=== PATIENT | female | born 1990 | race Caucasian/White ===

== ENCOUNTER 2017-01-26 12:17 | Emergency (ER) | payer SELFPAY ==
[~2017-01-26] VITALS: Ht 157.5 cm; Wt 50.0 kg
[2017-01-26 12:20] VITALS: BP 105/66; PULSE 86; RESP 20; TEMP 97.8; O2SAT 99
[2017-01-26] MEDS ORDERED: OLAN5TAB PO (13:05)
[2017-01-26] MEDS ORDERED: GABA100C4 PO (13:05)
--- NOTE | 2017-01-26 13:10 | PD ---
HPI Chief Complaint: Psychiatric Symptoms Time Seen by Provider: 13:03 Travel History International Travel<30 days: No Contact w/Intl Traveler<30days: No Traveled to known affect area: No History of Present Illness HPI 26-year-old female presents to emergency department accompanied by friends. The patient has moved to [place] approximately one month ago from [place]. Before that she had been living in [place] for approximately 5 years. She is currently dating her friends cousin. They're currently living with the friends that she is with today. She has several children at home. She has been on medications for schizophrenia, mood swings and anxiety. She's been out of her medications now for 2 weeks. According to her friends she is becoming more agitated at home and acting bizarre. She is making suicidal statements. She has also had made statements that she had thoughts of hurting her children. She had called family members in [place] asking them to take care of her children when she dies. Currently the patient denies any homicidal ideation. She does state that she does not want to live anymore. She does not have any active plan. Her friends are concerned due to her erratic behavior in her statements that she is at high risk for harm to herself or others. The patient denies any medical complaints. She has not been sick recently. She denies any overdose. She does smoke marijuana and tobacco. Denies alcohol. She denies . PFSH Past Medical History Narrative Medical Schizophrenia, mood disorder, anxiety, psoriasis Hx Anticoagulant Therapy: No Bipolar Disorder: Yes Anxiety: Yes Depression: Yes Cardiovascular Problems: No Chemotherapy: No Cerebrovascular Accident: No Diabetes: No Diminished Hearing: No Psychiatric: Yes Respiratory: No Schizophrenia: Yes Tetanus Vaccination: > 5 Years Influenza Vaccination: No ?: Not LMP: 01/24/17 : 4 Para: 4 Miscarriage: 0 : 0 Tubal Ligation: Yes Past Surgical History Narrative Surgical Appendectomy, tubal litigation Appendectomy: Yes Hysterectomy: No Social History Alcohol Use: No Tobacco Use: Yes (rare) Substance Use: Yes (marihuanna) Allergies-Medications (Allergen,Severity, Reaction): Coded Allergies: No Known Allergies (Unverified , 01/26/17) Reported Meds & Prescriptions Reported Meds & Active Scripts Active Reported Gabapentin 100 Mg Cap 100 Mg PO TID Olanzapine 5 Mg Tab 5 Mg PO BID Review of Systems Except as stated in HPI: all other systems reviewed are Neg Psychiatric: Positive: Depression, Suicidal Ideations, Mood Disorder, Substance Abuse, No: Anxiety, Disorder of Thought, Homicidal Ideation Physical Exam Narrative GENERAL: Well-nourished, well-developed patient. SKIN: Warm and dry. Scaly dermatitis consistent with psoriasis HEAD: Normocephalic and atraumatic. EYES: No scleral icterus. No injection or drainage. ENT: No nasal drainage noted. Mucous membranes pink. Airway patent. NECK: Supple, trachea midline. Moves head freely without obvious discomfort. CARDIOVASCULAR: Regular rate and rhythm without murmurs, gallops, or rubs. RESPIRATORY: Breath sounds equal bilaterally. No accessory muscle use. GASTROINTESTINAL: Abdomen soft, non-tender, nondistended. EXTREMITIES: No cyanosis or edema. BACK: Nontender without obvious deformity. No CVA tenderness. NEURO: Patient is alert and oriented. no sensorimotor deficits. Nonfocal. Normal speech. PSYCH: No delusions. No auditory or visual hallucinations. Data Data Last Documented VS Vital Signs Date Time Temp Pulse Resp B/P Pulse Ox O2 Delivery O2 Flow Rate FiO2 01/26/17 12:57 17 01/26/17 12:20 97.8 86 105/66 99 Room Air Orders Complete Blood Count With Diff (01/26/17 13:01) Comprehensive Metabolic Panel (01/26/17 13:01) Ed Urine Pregnancytest Poc (01/26/17 13:01) Psych Screen (01/26/17 13:01) Drug Screen, Random Urine (01/26/17 13:01) Alcohol (Ethanol) (01/26/17 13:01) Salicylates (Aspirin) (01/26/17 13:01) Tylenol (Acetaminophen) (01/26/17 13:01) Valproic Acid (Depakene) (01/26/17 13:12) Labs Laboratory Tests Test 01/26/17 13:00 White Blood Count 10.4 TH/MM3 Red Blood Count 4.24 MIL/MM3 Hemoglobin 13.1 GM/DL Hematocrit 38.8 % Mean Corpuscular Volume 91.6 FL Mean Corpuscular Hemoglobin 30.9 PG Mean Corpuscular Hemoglobin 33.8 % Concent Red Cell Distribution Width 13.2 % Platelet Count 281 TH/MM3 Mean Platelet Volume 8.9 FL Neutrophils (%) (Auto) 76.0 % Lymphocytes (%) (Auto) 16.2 % Monocytes (%) (Auto) 6.5 % Eosinophils (%) (Auto) 1.0 % Basophils (%) (Auto) 0.3 % Neutrophils # (Auto) 7.9 TH/MM3 Lymphocytes # (Auto) 1.7 TH/MM3 Monocytes # (Auto) 0.7 TH/MM3 Eosinophils # (Auto) 0.1 TH/MM3 Basophils # (Auto) 0.0 TH/MM3 CBC Comment DIFF FINAL Differential Comment Sodium Level 140 MEQ/L Potassium Level 3.7 MEQ/L Chloride Level 108 MEQ/L Carbon Dioxide Level 24.7 MEQ/L Anion Gap 7 MEQ/L Blood Urea Nitrogen 11 MG/DL Creatinine 0.65 MG/DL Estimat Glomerular Filtration 110 ML/MIN Rate Random Glucose 89 MG/DL Calcium Level 9.0 MG/DL Total Bilirubin 0.6 MG/DL Aspartate Amino Transf 13 U/L (AST/SGOT) Alanine Aminotransferase 18 U/L (ALT/SGPT) Alkaline Phosphatase 70 U/L Total Protein 8.0 GM/DL Albumin 4.3 GM/DL Salicylates Level 2.9 MG/DL Urine Opiates Screen NEG Acetaminophen Level LESS THAN 2.0 MCG/ML Urine Barbiturates Screen NEG Valproic Acid (Depakene) Level 4 MCG/ML Urine Amphetamines Screen NEG Urine Benzodiazepines Screen NEG Urine Cocaine Screen NEG Urine Cannabinoids Screen POS Ethyl Alcohol Level LESS THAN 3 MG/DL MDM Medical Decision Making Medical Screen Exam Complete: Yes Emergency Medical Condition: Yes Medical Record Reviewed: Yes Interpretation(s) Laboratory Tests Test 01/26/17 13:00 White Blood Count 10.4 TH/MM3 Red Blood Count 4.24 MIL/MM3 Hemoglobin 13.1 GM/DL Hematocrit 38.8 % Mean Corpuscular Volume 91.6 FL Mean Corpuscular Hemoglobin 30.9 PG Mean Corpuscular Hemoglobin 33.8 % Concent Red Cell Distribution Width 13.2 % Platelet Count 281 TH/MM3 Mean Platelet Volume 8.9 FL Neutrophils (%) (Auto) 76.0 % Lymphocytes (%) (Auto) 16.2 % Monocytes (%) (Auto) 6.5 % Eosinophils (%) (Auto) 1.0 % Basophils (%) (Auto) 0.3 % Neutrophils # (Auto) 7.9 TH/MM3 Lymphocytes # (Auto) 1.7 TH/MM3 Monocytes # (Auto) 0.7 TH/MM3 Eosinophils # (Auto) 0.1 TH/MM3 Basophils # (Auto) 0.0 TH/MM3 CBC Comment DIFF FINAL Differential Comment Sodium Level 140 MEQ/L Potassium Level 3.7 MEQ/L Chloride Level 108 MEQ/L Carbon Dioxide Level 24.7 MEQ/L Anion Gap 7 MEQ/L Blood Urea Nitrogen 11 MG/DL Creatinine 0.65 MG/DL Estimat Glomerular Filtration 110 ML/MIN Rate Random Glucose 89 MG/DL Calcium Level 9.0 MG/DL Total Bilirubin 0.6 MG/DL Aspartate Amino Transf 13 U/L (AST/SGOT) Alanine Aminotransferase 18 U/L (ALT/SGPT) Alkaline Phosphatase 70 U/L Total Protein 8.0 GM/DL Albumin 4.3 GM/DL Salicylates Level 2.9 MG/DL Urine Opiates Screen NEG Acetaminophen Level LESS THAN 2.0 MCG/ML Urine Barbiturates Screen NEG Valproic Acid (Depakene) Level 4 MCG/ML Urine Amphetamines Screen NEG Urine Benzodiazepines Screen NEG Urine Cocaine Screen NEG Urine Cannabinoids Screen POS Ethyl Alcohol Level LESS THAN 3 MG/DL Differential Diagnosis MDM: High Differential diagnoses: Schizophrenia, schizoaffective disorder, bipolar, anxiety, depression, adjustment reaction, mood disorder NOS, ODD, depressive disorder NOS, dementia, dementia with agitation, psychosis NOS, substance induced mood disorder, intermittent explosive disorder, Asperger syndrome, infection,electrolyte abnormality, malingering. Narrative Course Mental health screening discussed with the patient. Psychiatric screen ordered. The patient has been placed under a Ramos act to ensure patient's safety. The patient does not appear reliable. There is concern for self-harm and this is confirmed by the patient's friends that are with her today. The patient is medically cleared. This is schizophrenia, medical clearance exam Diagnosis Primary Impression: Schizophrenia Qualified Code: F20.9 - Schizophrenia, unspecified type Additional Impression: medical clearance exam Condition: Stable Chetan Morgan Jan 26, 2017 13:10
[2017-01-26 13:24] LABS: AUTOMATED NEUTROPHIL # 7.9 TH/MM3 (1.8-7.7); BASOPHIL % 0.3 % (0.0-2.0); EOSINOPHIL # 0.1 TH/MM3 (0-0.4); HEMATOCRIT 38.8 % (35.0-46.0); HEMO FLAGS DIFF FINAL; LYMPH % 16.2 % (9.0-44.0); LYMPHOCYTE # 1.7 TH/MM3 (1.0-4.8); MEAN CELL VOLUME 91.6 FL (80.0-100.0); MEAN CORPUSCULAR HEMOGLOBIN 30.9 PG (27.0-34.0); MEAN CORPUSCULAR HGB CONC 33.8 % (32.0-36.0); MONO % 6.5 % (0.0-8.0); PLATELET COUNT 281 TH/MM3 (150-450); RED BLOOD COUNT 4.24 MIL/MM3 (4.00-5.30); RED CELL DISTRIBUTION WIDTH 13.2 % (11.6-17.2); WHITE BLOOD COUNT 10.4 TH/MM3 (4.0-11.0)
[2017-01-26 13:29] LABS: AMPHETAMINE, URINE NEG (NEG); BARBITURATES, URINE NEG (NEG); COCAINE, URINE NEG (NEG)
[2017-01-26 13:35] LABS: ANION GAP 7 MEQ/L (5-15); AST (GOT) 13 U/L (15-37); BICARBONATE 24.7 MEQ/L (21.0-32.0); BLOOD UREA NITROGEN 11 MG/DL (7-18); CHLORIDE 108 MEQ/L (98-107); GLOMERULAR FILTRATION RATE 110 ML/MIN (>89); POTASSIUM 3.7 MEQ/L (3.5-5.1); SODIUM (NA) 140 MEQ/L (136-145)
[2017-01-26 13:38] LABS: ALKALINE PHOSPHATASE 70 U/L (45-117); ALT (GPT) 18 U/L (10-53); TOTAL BILIRUBIN ADULT 0.6 MG/DL (0.2-1.0)
[2017-01-26 13:44] LABS: ACETAMINOPHEN LESS THAN 2.0 MCG/ML (10.0-30.0)
[2017-01-26 14:30] VITALS: BP 116/81; PULSE 78; RESP 16; TEMP 97.8; O2SAT 99
[2017-01-26 17:11] VITALS: BP 109/57; PULSE 106; RESP 18; TEMP 96.5; O2SAT 99
[2017-01-26 22:00] VITALS: BP 113/56; PULSE 70; RESP 18; O2SAT 98
[2017-01-27 02:38] VITALS: BP 112/56; PULSE 84; RESP 18; O2SAT 98
[2017-01-27 06:20] VITALS: BP 98/60; PULSE 89; RESP 18
[2017-01-27 10:44] VITALS: BP 105/59; PULSE 73; RESP 18; O2SAT 100
--- NOTE | 2017-01-27 11:23 | PD.CONS ---
Provisional Diagnosis Admission Date 01/26/17 [place]. Schizoaffective disorder bipolar type f 25.0 marijuana abuse F 12.10 History of Present Illness Service Psychiatry Consult Requested By EDMD Reason for Consult Richard ramirez Primary Care Physician No Primary Care Physician HPI Patient 26-year-old Malian-speaking female comes here under Ramos act signed by Crystal GU dated 01/26/1713 [place] 5 PM Ramos act certificate reviewed basically stating that patient made suicidal statements that she no longer wants to live. And had called relatives to care for her children. It appears the patient has moved down here from the [place] area further for small children about a month ago is staying with family. It appears she has mental health issues was seeing some type of a psychiatrist in [place] being prescribed Zyprexa and gabapentin. She shows some noncompliance with her medications running out of the medicine. This may lead to increased auditory hallucinations also increase use of marijuana on a self-medicating attempt. She does deny any inpatient psychiatric hospitalizations either here or in [place]. At the present time patient sitting quietly in her room on [facility]. We do have semiconductor dies loader working with us through the computer. Patient acknowledges the above history. She denies suicidality homicidality. She states she is willing to be compliant with her medications. She states that her family has made some type of an appointment with some type of a health pet caretaker the next day or 2. At this time I feel patient does not meet Ramos act criteria. I will lift the Ramos act. I will prescribe her 2 week supply of Zyprexa 5 mg twice a day and gabapentin 100 mg 3 times a day. We'll also arrange for follow-up appointment with [facility] outpatient mental health services. Allow patient to be discharged to her family Review of Systems Constitutional: DENIES: Diaphoretic episodes, Fatigue, Fever, Weight gain, Weight loss, Chills, Dizziness, Change in appetite, Night Sweats Endocrine: DENIES: Abnorml menstrual pattern, Heat/cold intolerance, Polydipsia , Polyuria, Polyphagia Eyes: DENIES: Blurred vision, Diplopia, Eye inflammation, Eye pain, Vision loss , Photosensitivity, Double Vision Respiratory: DENIES: Apneas, Cough, Snoring, Wheezing, Hemoptysis, Sputum production, Shortness of breath Cardiovascular: DENIES: Chest pain, Palpitations, Syncope, Dyspnea on Exertion , PND, Lower Extremity Edema, Orthopnea, Claudication Genitourinary: DENIES: Abnormal vaginal bleeding, Dysmenorrhea, Dyspareunia, Sexual dysfunction, Urinary frequency, Urinary incontinence, Urgency, Hematuria , Dysuria, Nocturia, Vaginal discharge Musculoskeletal: DENIES: Joint pain, Muscle aches, Stiffness, Joint Swelling, Back pain, Neck pain Integumentary: DENIES: Abnormal pigmentation, Pruritus, Rash, Nail changes, Breast masses, Breast skin changes, Nipple discharge Hematologic/lymphatic: DENIES: Bruising, Lymphadenopathy Neurologic: DENIES: Abnormal gait, Headache, Localized weakness, Paresthesias, Seizures, Speech Problems, Tremor, Poor Balance Psychiatric: COMPLAINS OF: Anxiety, Mood changes (vague), Depression (vague), Hallucinations Past Family Social History Coded Allergies: No Known Allergies (Unverified , 01/26/17) Past Medical History Patient medically clearedand Reported Medications Gabapentin 100 Mg Oly604 Mg PO TID #90 CAP Ref 0 01/26/17 Olanzapine 5 Mg Tab5 Mg PO BID #60 TAB Ref 0 01/26/17 Family History Patient living with extended family no history mental illness or abuse noted Social History Patient here with 4 small children has been self-medicating with marijuana since running out of her medication Patient's Strengths (min. 2) Patient verbal irritable access healthcare Physical Exam Patient seen screened in ED exam reviewed and agreed with Vital Signs Vital Signs Date Time Temp Pulse Resp B/P Pulse Ox O2 Delivery O2 Flow Rate FiO2 01/27/17 10:44 73 18 105/59 100 Room Air 01/26/17 17:11 96.5 Mental Status Examination Alert fairly well oriented speaking female calm cooperative with fair eye contact speaking appropriately through semiconductor dies loader through the computer Appearance Somewhat disheveled Speech: Rapid (though speaking in Malian) Orientation: x3 Thought Process: Linear Thought Content: Unremarkable Language Malian Fund of Knowledge Appears somewhat low Hallucination Type: Auditory (mildly threatening) Attention and Concentration: Other (fair) Suicidal Ideation: No (denies) Previous Suicide Attempts: No (denies) Homicidal Ideation: No (denies) Previous Homicide Attempts: No (denies) Insight: Poor Judgment: Poor Affect: Other (slight decrease range and intensity) Mood: Euthymic (to somewhat restricted) Motor Activity: Normal gait Assessment & Plan Problem List: (1) Schizoaffective disorder, bipolar type ICD Code: F25.0 (2) Marijuana abuse ICD Code: F12.10 Assessment & Plan Estimated LOS: days patient does not meet Richard criteria will lift Richard ramirez. We'll give her 2 week supply of her medications, other referral to [facility] ramirez outpatient follow-up. Patient denies suicidality homicidality also size need for sobriety with cessation of her marijuana use Discharge Planning See above Request HC Surrog/Guard Advoc?: No King Nevarez MD Jan 27, 2017 11:22
[2017-01-27] MEDS ORDERED: OLAN5TAB PO (11:25)
[2017-01-27] MEDS ORDERED: GABA100C4 PO (11:25)
== END 2017-01-27 11:36 | disposition home or self-care (01) ==
LOC: NEPD 12:17 → NEPJ 01-27 11:36
DX: F20.9 Schizophrenia, unspecified (principal); F41.9 Anxiety disorder, unspecified; F12.90 Cannabis use, unspecified, uncomplicated; Z91.14 Patient's other noncompliance with medication regimen
CPT/HCPCS: 80053; 80164; 80307; 84703; 85025; 99284

== ENCOUNTER 2017-10-15 13:36 | Emergency (ER) | payer OTHER ==
[~2017-10-15 13:36] MED LIST: GABA100C4 PO; OLAN5TAB PO
[2017-10-15 13:39] VITALS: BP 103/58; PULSE 78; RESP 14; TEMP 98; O2SAT 99
[2017-10-15] MEDS ORDERED: IBUPROFEN 600 MG TAB PO ONE (14:15)
--- NOTE | 2017-10-15 14:17 | PD ---
HPI Chief Complaint: Pain: Acute or Chronic Time Seen by Provider: 13:56 Travel History International Travel<30 days: No Contact w/Intl Traveler<30days: No Traveled to known affect area: No History of Present Illness HPI 26-year-old female presents to the emergency department for right lower chest wall pain that has been ongoing for 2 weeks, exacerbated by movement, alleviated by rest. She states that since she is instructed on gabapentin, she' s been having intermittent pain. She also states she has a lump to the right areole that she has had for approximately a year that she would like to have looked at today. Patient has history of schizophrenia and is on gabapentin and a medication to help her sleep. Her is at bedside. The patient does not speak Syriac but request translation to be done through her . Patient has no difficulty swallowing or breathing. No shortness of breath. No fevers or chills. No cough or congestion. No abdominal pain. No nausea, vomiting, diarrhea. She denies reporting history of tubal ligation. Moderate severity. No associated symptoms per. She denies any recent surgery or travel. No hemoptysis. No leg edema. She is not on control. No history of DVT or PE. PFSH Past Medical History Hx Anticoagulant Therapy: No Bipolar Disorder: Yes Anxiety: Yes Depression: Yes Cardiovascular Problems: No Chemotherapy: No Cerebrovascular Accident: No Diabetes: No Diminished Hearing: No Psychiatric: Yes Respiratory: No Schizophrenia: Yes : 4 Para: 4 Miscarriage: 0 : 0 Tubal Ligation: Yes Past Surgical History Appendectomy: Yes Hysterectomy: No Social History Alcohol Use: No Tobacco Use: Yes (rare) Substance Use: Yes Allergies-Medications (Allergen,Severity, Reaction): Coded Allergies: No Known Allergies (Unverified , 01/26/17) Reported Meds & Prescriptions Reported Meds & Active Scripts Active Reported Gabapentin 100 Mg Cap 100 Mg PO TID Olanzapine 5 Mg Tab 5 Mg PO BID Review of Systems Except as stated in HPI: all other systems reviewed are Neg Physical Exam Narrative GENERAL: Well-nourished, well-developed female patient, ambulatory. Afebrile. SKIN: Focused skin assessment warm/dry. Mild, approximately 1-2 mm lump to her right areole. This is not erythematous, without drainage, no warmth. This is consistent with a sebaceous cyst HEAD: Normocephalic. Atraumatic. EYES: No scleral icterus. No injection or drainage. NECK: Supple, trachea midline. No JVD or lymphadenopathy. CARDIOVASCULAR: Regular rate and rhythm without murmurs, gallops, or rubs. RESPIRATORY: Breath sounds equal bilaterally. No accessory muscle use. Lungs sounds are clear to auscultation GASTROINTESTINAL: Abdomen soft, non-tender, nondistended. MUSCULOSKELETAL: No cyanosis, or edema. Patient points to her right lower chest wall where her pain is. This pain is easily reproduced with palpation. BACK: Nontender without obvious deformity. No CVA tenderness. Data Data Last Documented VS Vital Signs Date Time Temp Pulse Resp B/P (MAP) Pulse Ox O2 Delivery O2 Flow Rate FiO2 10/15/17 13:39 98.0 78 14 103/58 (73) 99 Orders Orders Chest, Single Ap (10/15/17 ) Ibuprofen (Motrin) (10/15/17 14:15) MDM Medical Decision Making Medical Screen Exam Complete: Yes Emergency Medical Condition: Yes Medical Record Reviewed: Yes Interpretation(s) Last Impressions Chest X-Ray 10/15/17 0000 Signed Impressions: Service Date/Time: Sunday, October 15, 2017 14:33 - CONCLUSION: No acute disease. King Alexander MD Differential Diagnosis Sebaceous cyst versus chest wall pain vs. pneumonia vs. pneumothorax Narrative Course 26-year-old female presents to the emergency department for evaluation of right chest wall pain that started 2 weeks ago and has been intermittent, worse with movement. She also reports a lump to her area all of that she has had for approximately one year. This is consistent with a sebaceous cyst. Patient appears well on exam. Pain is easily reproducible. Patient is PERC negative. Chest x-ray is ordered and pending. Chest x-ray shows no acute disease. Patient started to use heating pad on low, ibuprofen [id number] as needed for pain. She is to follow-up with a primary care physician. She verbalizes agreement. The patient was discharged in stable condition with instructions, including return instructions and follow up instructions. Diagnosis Primary Impression: Chest wall pain Referrals: Primary Care Physician call for appointment Patient Instructions: Chest Wall Pain (ED), General Instructions Additional Instructions: Heating pad on low for 20 minutes 4-5 times daily. [id number] ibuprofen every 6-8 hours as needed for pain. Follow-up with your primary care physician. Return to the emergency department for any acute worsening of symptoms. Med/Other Pt SpecificInfo: No Change to Meds Disposition: 01 DISCHARGE HOME Condition: Stable Arlin Sandoval Oct 15, 2017 14:17
--- NOTE | 2017-10-15 14:59 | RADRPT ---
EXAM DATE/TIME: 10/15/2017 14:33 [facility] COMPARISON: No previous studies available for comparison. INDICATIONS : Rib pain. MEDICAL HISTORY : None. SURGICAL HISTORY : Tubal ligation. Appendectomy. ENCOUNTER: Initial ACUITY: 3 days PAIN SCORE: 4/10 LOCATION: Bilateral chest FINDINGS: A single view of the chest demonstrates the lungs to be symmetrically aerated without evidence of mas s, infiltrate or effusion. The cardiomediastinal contours are unremarkable. Osseous structures are intact. CONCLUSION: No acute disease. King Alexander MD on October 15, 2017 at 14:57 Board Certified Radiologist. This report was verified electronically.
== END 2017-10-15 15:32 | disposition home or self-care (01) ==
LOC: NEPD 13:36
DX: R07.89 Other chest pain (principal); Z72.0 Tobacco use
CPT/HCPCS: 71010; 99283

== ENCOUNTER 2018-02-28 10:31 | Emergency (ER) | payer OTHER ==
[~2018-02-28] VITALS: Ht 157.5 cm; Wt 38.0 kg
[2018-02-28 10:33] VITALS: BP 102/59; PULSE 86; RESP 20; TEMP 98.5; O2SAT 99
[2018-02-28] MEDS ORDERED: SODIUM CHLOR 0.9% 1000 ML INJ 1,000 ML IV ONE (11:24)
[2018-02-28] MEDS ORDERED: SODIUM CHLORIDE 0.9% FLUSH 10 ML FLUSH IVF PRN (11:30)
--- NOTE | 2018-02-28 11:36 | PD ---
HPI Chief Complaint: Syncope/Near-Syncope Time Seen by Provider: 11:13 Travel History International Travel<30 days: No Contact w/Intl Traveler<30days: No Traveled to known affect area: No History of Present Illness HPI The patient was seen and examined in the presence of the nurse. This patient has 2 complaints. She has right lower quadrant pain. She has had on and off for several weeks. She has no appendix. She has had a tubal ligation. Patient is a Brazilian only speaker. Formal translation program was utilized. She is felt a little bulge in the right lower quadrant which can be felt when she stands. Severity of symptoms is moderate. She reports that she was dizzy and lightheaded earlier today and had what sounds like a presyncopal episode. No chest pain or headache or fever. No alleviating factors. No exacerbating factors. PFSH Past Medical History Hx Anticoagulant Therapy: No Bipolar Disorder: Yes Anxiety: Yes Depression: Yes Cardiovascular Problems: No Chemotherapy: No Cerebrovascular Accident: No Diabetes: No Diminished Hearing: No Psychiatric: Yes Respiratory: No Schizophrenia: Yes ?: Not LMP: 02/07 : 4 Para: 4 Miscarriage: 0 : 0 Tubal Ligation: Yes Past Surgical History Appendectomy: Yes Hysterectomy: No Social History Alcohol Use: No Tobacco Use: No (rare) Substance Use: No Allergies-Medications (Allergen,Severity, Reaction): Coded Allergies: No Known Allergies (Unverified Adverse Reaction, Unknown, 02/28/18) Reported Meds & Prescriptions Reported Meds & Active Scripts Active No Active Prescriptions or Reported Medications Review of Systems General / Constitutional: No: Fever Eyes: No: Visual changes HENT: Positive: Lightheadedness, No: Headaches Cardiovascular: No: Chest Pain or Discomfort Respiratory: No: Shortness of Breath Gastrointestinal: Positive: Abdominal Pain Genitourinary: Positive: Pelvic Pain, No: Dysuria Musculoskeletal: Positive: Weakness, No: Pain Skin: No Rash Neurologic: Positive: Weakness, Dizziness Psychiatric: No: Depression Endocrine: No: Polydipsia Hematologic/Lymphatic: No: Easy Bruising Physical Exam Narrative GENERAL: Well-nourished, well-developed patient in no apparent distress. SKIN: Focused skin assessment reveals no rash and nodules. Skin is Warm and dry. HEAD: Atraumatic. Normocephalic. EYES: Pupils equal and round. No scleral icterus. No injection or drainage. ENT: No nasal bleeding or discharge. Mucous membranes pink and moist. NECK: Trachea midline. No JVD. CARDIOVASCULAR: Regular rate and rhythm. No murmur appreciated. RESPIRATORY: No accessory muscle use. Clear to auscultation. Breath sounds equal bilaterally. GASTROINTESTINAL: Abdomen soft, right lower quadrant is tender without rebound or guarding. nondistended. Hepatic and splenic margins not palpable. When she is sitting up I can feel a small hernia just above the right inguinal ligament. Is easily reducible. It is tender. MUSCULOSKELETAL: No obvious deformities. No clubbing. No cyanosis. No edema. NEUROLOGICAL: Awake and alert. No obvious cranial nerve deficits. Motor grossly within normal limits. Normal speech. PSYCHIATRIC: Appropriate mood and affect; insight and judgment normal. Pelvic: No bleeding or discharge. No lesions seen. Data Data Last Documented VS Vital Signs Date Time Temp Pulse Resp B/P (MAP) Pulse Ox O2 Delivery O2 Flow Rate FiO2 02/28/18 10:33 98.5 86 20 102/59 (73) 99 Orders Orders Electrocardiogram (02/28/18 11:24) Basic Metabolic Panel (Bmp) (02/28/18 11:24) Ed Urine Pregnancytest Poc (02/28/18 11:24) Complete Blood Count With Diff (02/28/18 11:24) Ecg Monitoring (02/28/18 11:24) Iv Access Insert/Monitor (02/28/18 11:24) Sodium Chloride 0.9% Flush (Ns Flush) (02/28/18 11:30) Sodium Chlor 0.9% 1000 Ml Inj (Ns 1000 M (02/28/18 11:24) Labs Laboratory Tests Test 02/28/18 11:35 White Blood Count 8.3 TH/MM3 Red Blood Count 4.07 MIL/MM3 Hemoglobin 13.0 GM/DL Hematocrit 37.6 % Mean Corpuscular Volume 92.4 FL Mean Corpuscular Hemoglobin 32.0 PG Mean Corpuscular Hemoglobin Concent 34.6 % Red Cell Distribution Width 12.8 % Platelet Count 240 TH/MM3 Mean Platelet Volume 9.4 FL Neutrophils (%) (Auto) 67.0 % Lymphocytes (%) (Auto) 19.6 % Monocytes (%) (Auto) 12.5 % Eosinophils (%) (Auto) 0.7 % Basophils (%) (Auto) 0.2 % Neutrophils # (Auto) 5.6 TH/MM3 Lymphocytes # (Auto) 1.6 TH/MM3 Monocytes # (Auto) 1.0 TH/MM3 Eosinophils # (Auto) 0.1 TH/MM3 Basophils # (Auto) 0.0 TH/MM3 CBC Comment DIFF FINAL Differential Comment Blood Urea Nitrogen 6 MG/DL Creatinine 0.65 MG/DL Random Glucose 87 MG/DL Calcium Level 9.4 MG/DL Sodium Level 138 MEQ/L Potassium Level 3.8 MEQ/L Chloride Level 109 MEQ/L Carbon Dioxide Level 21.4 MEQ/L Anion Gap 8 MEQ/L Estimat Glomerular Filtration Rate 109 ML/MIN MDM Medical Decision Making Medical Screen Exam Complete: Yes Emergency Medical Condition: Yes Medical Record Reviewed: Yes Differential Diagnosis Cardiac arrhythmia, vasovagal episode, PID, ectopic, hernia Narrative Course I have reviewed the patient's electronic medical record. IV placed and labs sent I reviewed her EKG which is sinus rhythm without ectopy Urine is negative CBC and metabolic studies are all normal Patient has right lower quadrant pain which is a small easily reducible hernia. Discussed the possibility of outpatient general surgery follow-up if she desires Stable for outpatient family physician follow-up Diagnosis Primary Impression: Right groin hernia Additional Impressions: Pelvic pain in female Pre-syncope Additional Instructions: The patient was advised to follow up with their physician and return if they worsen. Med/Other Pt SpecificInfo: Other Scripts No Active Prescriptions or Reported Meds Disposition: 01 DISCHARGE HOME Condition: Stable Kei Patel MD February 28, 2018 11:36
[2018-02-28 11:54] LABS: AUTOMATED NEUTROPHIL # 5.6 TH/MM3 (1.8-7.7); BASOPHIL % 0.2 % (0.0-2.0); EOSINOPHIL # 0.1 TH/MM3 (0-0.4); EOSINOPHIL % 0.7 % (0.0-4.0); HEMATOCRIT 37.6 % (35.0-46.0); LYMPH % 19.6 % (9.0-44.0); LYMPHOCYTE # 1.6 TH/MM3 (1.0-4.8); MEAN CELL VOLUME 92.4 FL (80.0-100.0); MEAN CORPUSCULAR HGB CONC 34.6 % (32.0-36.0); MEAN PLATELET VOLUME 9.4 FL (7.0-11.0); MONO % 12.5 % (0.0-8.0); PLATELET COUNT 240 TH/MM3 (150-450); RED BLOOD COUNT 4.07 MIL/MM3 (4.00-5.30); RED CELL DISTRIBUTION WIDTH 12.8 % (11.6-17.2); WHITE BLOOD COUNT 8.3 TH/MM3 (4.0-11.0)
[2018-02-28 12:10] LABS: BICARBONATE 21.4 MEQ/L (21.0-32.0); CALCIUM 9.4 MG/DL (8.5-10.1); CREATININE 0.65 MG/DL (0.50-1.00)
[2018-02-28 15:00] VITALS: BP 99/51
--- NOTE | 2018-03-01 08:14 | EKG ---
Date Performed: 02/28/2018 Time Performed: 11:47:59 PTAGE: 27 years EKG: Sinus rhythm NORMAL ECG NO PREVIOUS TRACING DOCTOR: Rhonda Mcgarry Interpretating Date/Time 03/01/2018 08:12:49
== END 2018-02-28 15:53 | disposition home or self-care (01) ==
LOC: NEPC 10:31
DX: K40.90 Unilateral inguinal hernia, without obstruction or gangrene, not specified as recurrent (principal); R10.2 Pelvic and perineal pain; R55 Syncope and collapse
CPT/HCPCS: 80048; 84703; 85025; 93005; 99284; J7030

== ENCOUNTER 2018-04-01 10:49 | Emergency (ER) | payer OTHER ==
[~2018-04-01] VITALS: Ht 157.5 cm; Wt 41.0 kg
[2018-04-01] MEDS ORDERED: IOHEXOL 350 MG/ML 10 ML VIAL (for RAD DIAG) IVCONTRAST ONE (10:50)
[2018-04-01 10:58] VITALS: BP 110/58; PULSE 68; RESP 17; TEMP 97.9; O2SAT 100
[2018-04-01] MEDS ORDERED: SODIUM CHLOR 0.9% 1000 ML INJ 1,000 ML IV SCH (11:13)
[2018-04-01] MEDS ORDERED: SODIUM CHLORIDE 0.9% FLUSH 10 ML FLUSH IV FLUSH PRN (11:15)
[2018-04-01] MEDS ORDERED: MORPHINE SULFATE 4 MG/ML INJ IV PUSH ONE (11:15)
[2018-04-01] MEDS ORDERED: ONDANSETRON ODT 4 MG TAB PO ONE (11:15)
--- NOTE | 2018-04-01 11:19 | PD ---
HPI Chief Complaint: GI Complaint Time Seen by Provider: 11:04 Travel History International Travel<30 days: No Contact w/Intl Traveler<30days: No Traveled to known affect area: No History of Present Illness HPI This patient is a Latvian speaker, she declines officially which interpreted Rosalva prefer that her interpret for her. 27-year-old female with past surgical history of appendectomy and tubal ligation presents for evaluation of abdominal pain, nausea, vomiting and diarrhea. She reports over the past month she has had intermittent pain in her right lower quadrant which is sharp and comes and goes. For the past 2 days she has been having nausea, vomiting or diarrhea. She reports 2-3 episodes of nonbloody emesis a day and 3-4 episodes of nonbloody diarrhea a day. She reports that she was seen here on February 28 and was clinically diagnosed with a right groin hernia. She was encouraged to follow-up with a primary care physician which she did. He is scheduled her with an appointment with a surgeon in [place] next week. Her new symptoms of nausea, vomiting diarrhea started 2 days ago and her primary care physician encouraged her to come here for further evaluation. She denies dysuria, increased urinary frequency but she is having some hesitancy. She is having vaginal discharge because she is on her menstrual period but she denies discharge, flank pain, fevers or chills. No other complaints. PFSH Past Medical History Hx Anticoagulant Therapy: No Bipolar Disorder: Yes Anxiety: Yes Depression: Yes Cardiovascular Problems: No Chemotherapy: No Cerebrovascular Accident: No Diabetes: No Diminished Hearing: No Psychiatric: Yes Respiratory: No Schizophrenia: Yes ?: Not : 4 Para: 4 Miscarriage: 0 : 0 Tubal Ligation: Yes Past Surgical History Appendectomy: Yes Hysterectomy: No Social History Alcohol Use: No Tobacco Use: No (rare) Substance Use: No Allergies-Medications (Allergen,Severity, Reaction): Coded Allergies: No Known Allergies (Unverified Adverse Reaction, Unknown, 04/01/18) Reported Meds & Prescriptions Reported Meds & Active Scripts Active Zofran (Ondansetron HCl) 4 Mg Tab 4 Mg PO Q6HR PRN Review of Systems Except as stated in HPI: all other systems reviewed are Neg Physical Exam Narrative GENERAL: Well-developed well-nourished female no acute distress SKIN: Warm and dry. HEAD: Atraumatic. Normocephalic. EYES: Pupils equal and round. No scleral icterus. No injection or drainage. ENT: No nasal bleeding or discharge. Mucous membranes pink and moist. NECK: Trachea midline. No JVD. CARDIOVASCULAR: Regular rate and rhythm. No murmur appreciated. RESPIRATORY: No accessory muscle use. Clear to auscultation. Breath sounds equal bilaterally. GASTROINTESTINAL: Abdomen soft, focal right lower quadrant tenderness without guarding. There is no palpable hernia when the patient is supine or standing. MUSCULOSKELETAL: No obvious deformities. No clubbing. No cyanosis. No edema. NEUROLOGICAL: Awake and alert. No obvious cranial nerve deficits. Motor grossly within normal limits. Normal speech. Data Data Last Documented VS Vital Signs Date Time Temp Pulse Resp B/P (MAP) Pulse Ox O2 Delivery O2 Flow Rate FiO2 04/01/18 10:58 97.9 68 17 110/58 (75) 100 Orders Orders Complete Blood Count With Diff (04/01/18 11:13) Comprehensive Metabolic Panel (04/01/18 11:13) Lipase (04/01/18 11:13) Urinalysis - C+S If Indicated (04/01/18 11:13) Iv Access Insert/Monitor (04/01/18 11:13) Ecg Monitoring (04/01/18 11:13) Oximetry (04/01/18 11:13) Sodium Chlor 0.9% 1000 Ml Inj (Ns 1000 M (04/01/18 11:13) Sodium Chloride 0.9% Flush (Ns Flush) (04/01/18 11:15) Ed Urine Pregnancytest Poc (04/01/18 11:13) Ondansetron Odt (Zofran Odt) (04/01/18 11:15) Morphine Inj (Morphine Inj) (04/01/18 11:15) Ct Abd/Pel W Iv Contrast(Rout) (04/01/18 11:58) Oral Contrast - Adult (04/01/18 12:03) Diatrizoate Liq ( Gastroview Liq) (04/01/18 12:05) Metoclopramide Inj (Reglan Inj) (04/01/18 13:45) Iohexol 350 Inj (Omnipaque 350 Inj) (04/01/18 10:50) Potassium Chloride (Kcl) (04/01/18 15:00) Ed Discharge Order (04/01/18 15:45) Labs Laboratory Tests Test 04/01/18 11:25 White Blood Count 6.7 TH/MM3 Red Blood Count 3.90 MIL/MM3 Hemoglobin 12.4 GM/DL Hematocrit 36.1 % Mean Corpuscular Volume 92.5 FL Mean Corpuscular Hemoglobin 31.7 PG Mean Corpuscular Hemoglobin Concent 34.3 % Red Cell Distribution Width 13.0 % Platelet Count 267 TH/MM3 Mean Platelet Volume 9.8 FL Neutrophils (%) (Auto) 66.3 % Lymphocytes (%) (Auto) 22.8 % Monocytes (%) (Auto) 8.5 % Eosinophils (%) (Auto) 2.1 % Basophils (%) (Auto) 0.3 % Neutrophils # (Auto) 4.5 TH/MM3 Lymphocytes # (Auto) 1.5 TH/MM3 Monocytes # (Auto) 0.6 TH/MM3 Eosinophils # (Auto) 0.1 TH/MM3 Basophils # (Auto) 0.0 TH/MM3 CBC Comment DIFF FINAL Differential Comment Urine Color YELLOW Urine Turbidity HAZY Urine pH 7.5 Urine Specific Hayes 1.028 Urine Protein TRACE mg/dL Urine Glucose (UA) NEG mg/dL Urine Ketones NEG mg/dL Urine Occult Blood MOD Urine Nitrite NEG Urine Bilirubin NEG Urine Urobilinogen LESS THAN 2.0 MG/DL Urine Leukocyte Esterase NEG Urine RBC 89 /hpf Urine WBC 3 /hpf Urine Squamous Epithelial Cells 1 /hpf Urine Mucus MANY /lpf Microscopic Urinalysis Comment CULT NOT INDICATED Blood Urea Nitrogen 6 MG/DL Creatinine 0.59 MG/DL Random Glucose 81 MG/DL Total Protein 7.4 GM/DL Albumin 4.1 GM/DL Calcium Level 8.7 MG/DL Alkaline Phosphatase 54 U/L Aspartate Amino Transf (AST/SGOT) 9 U/L Alanine Aminotransferase (ALT/SGPT) 12 U/L Total Bilirubin 0.7 MG/DL Sodium Level 142 MEQ/L Potassium Level 3.1 MEQ/L Chloride Level 108 MEQ/L Carbon Dioxide Level 25.8 MEQ/L Anion Gap 8 MEQ/L Estimat Glomerular Filtration Rate 122 ML/MIN Lipase 99 U/L [facility] Medical Decision Making Medical Screen Exam Complete: Yes Emergency Medical Condition: Yes Medical Record Reviewed: Yes Differential Diagnosis Gastroenteritis, hernia, incarcerated hernia, ovarian torsion, appendicitis, colitis, diverticulitis, pelvic inflammatory disease Narrative Course Lab work, urinalysis, CT abdomen and pelvis have been ordered. The patient will be given IV fluids, Zofran, morphine. Patient had some nausea and vomiting during the administration of oral contrast and therefore IV Reglan was administered with resolution of her nausea. Her lab work is been reviewed. Potassium is 3.1 otherwise her lab work unremarkable. Oral potassium chloride was administered. CT abdomen pelvis reveals no acute abnormalities, retroverted uterus is noted. She was given a copy of her CT report. She does have history of tubal ligation and has no plans of getting in the future. Her urinalysis reveals 89 RBCs, likely contaminant from menstruation. This point time the plan is to discharge the patient with prescription for Zofran. Discussed signs and symptoms that would warrant returning to the emergency room. Diagnosis Primary Impression: Abdominal pain Additional Impression: Nausea and vomiting Additional Instructions: Medication as prescribed. Slowly advance diet as tolerated. Follow-up with primary care physician. Return for any emergent medical conditions. Med/Other Pt SpecificInfo: Prescription(s) given Scripts Ondansetron (Zofran) 4 Mg Tab 4 MG PO Q6HR Y for NAUSEA OR VOMITING, #20 TAB 0 Refills Prov: Sylvester South MD 04/01/18 Disposition: 01 DISCHARGE HOME Condition: Stable Phan Zheng Apr 01, 2018 11:19
[2018-04-01] MEDS ORDERED: DIATRIZOATE MEGLUM/DIATRIZOATE SOD 9 ML CUP ONE (12:05)
[2018-04-01 12:49] LABS: AUTOMATED NEUTROPHIL # 4.5 TH/MM3 (1.8-7.7); BASOPHIL % 0.3 % (0.0-2.0); EOSINOPHIL # 0.1 TH/MM3 (0-0.4); EOSINOPHIL % 2.1 % (0.0-4.0); HEMATOCRIT 36.1 % (35.0-46.0); HEMOGLOBIN 12.4 GM/DL (11.6-15.3); LYMPH % 22.8 % (9.0-44.0); LYMPHOCYTE # 1.5 TH/MM3 (1.0-4.8); MEAN CELL VOLUME 92.5 FL (80.0-100.0); MEAN CORPUSCULAR HEMOGLOBIN 31.7 PG (27.0-34.0); MEAN CORPUSCULAR HGB CONC 34.3 % (32.0-36.0); MEAN PLATELET VOLUME 9.8 FL (7.0-11.0); MONO % 8.5 % (0.0-8.0); MONOCYTE # 0.6 TH/MM3 (0-0.9); NEUT % 66.3 % (16.0-70.0); PLATELET COUNT 267 TH/MM3 (150-450); WHITE BLOOD COUNT 6.7 TH/MM3 (4.0-11.0)
[2018-04-01 13:06] LABS: BILIRUBIN, URINE NEG (NEG); BLOOD, URINE MOD (NEG); GLUCOSE,URINE NEG (NEG); KETONE, URINE NEG (NEG); MUCUS URINE MANY /lpf (OCC); NITRITE,URINE NEG (NEG); PH, URINE 7.5 (5.0-8.5); SQUAMOUS EPITHELIAL CELL URINE 1 /hpf (0-5); URINE COLOR YELLOW (YELLW/STRAW); URINE LEUKOCYTE ESTERASE NEG (NEG)
[2018-04-01 13:14] LABS: ALBUMIN 4.1 GM/DL (3.4-5.0); ALT (GPT) 12 U/L (10-53); AST (GOT) 9 U/L (15-37); BICARBONATE 25.8 MEQ/L (21.0-32.0); BLOOD UREA NITROGEN 6 MG/DL (7-18); CALCIUM 8.7 MG/DL (8.5-10.1); CHLORIDE 108 MEQ/L (98-107); CREATININE 0.59 MG/DL (0.50-1.00); GLOMERULAR FILTRATION RATE 122 ML/MIN (>89); GLUCOSE,RANDOM 81 MG/DL (74-106); SODIUM (NA) 142 MEQ/L (136-145)
[2018-04-01 13:16] LABS: ALKALINE PHOSPHATASE 54 U/L (45-117); TOTAL BILIRUBIN ADULT 0.7 MG/DL (0.2-1.0); TOTAL PROTEIN 7.4 GM/DL (6.4-8.2)
[2018-04-01] MEDS ORDERED: METOCLOPRAMIDE HCL 10 MG/2 ML VIAL IV PUSH ONE (13:45)
[2018-04-01] MEDS ORDERED: POTASSIUM CHLORIDE 20 MEQ CONTROLLED RELEASE TAB PO ONE (15:00)
--- NOTE | 2018-04-01 15:40 | RADRPT ---
EXAM DATE: 04/01/2018 2:33 PM EDT AGE/SEX: 27 years / Female INDICATIONS: Nausea and vomiting for two days. CLINICAL DATA: This is the patient's initial encounter. Patient reports that signs and symptoms have been present for 2 days and indicates a pain score of 10/10. MEDICAL/SURGICAL HISTORY: . hernia to right lower abdomen. Appendectomy. Tubal ligation. ORAL CONTRAST: Prescribed oral contrast ingested. RADIATION DOSE: 6.64 CTDI (mGy) COMPARISON: No prior exams available for comparison. TECHNIQUE: Multiple contiguous axial images were obtained through the abdomen and pelvis following b olus infusion of 75 ml Omnipaque 350 (iohexol) nonionic water-soluble contrast as a single exam dos e. Prescribed oral contrast ingested. Using automated exposure control and adjustment of the mA and/ or kV according to patient size, the radiation dose was kept as low as reasonably achievable to obtai n optimal diagnostic quality images. FINDINGS: Lower Lungs: The visualized lower lungs are clear. Liver: The liver has a homogeneous density without space-occupying lesion. There is no dilation of th e biliary tree. Spleen: Homogeneous density without enlargement. Pancreas: Unremarkable without mass or calcification. Kidneys: Normal in size and shape. No evidence of mass or hydronephrosis. Adrenal Glands: Unremarkable. Aorta: The aorta and proximal iliac vessels are grossly unremarkable without aneurysmal dilation. Bowel/Mesentery: The bowel loops are grossly unremarkable. The cecum and sigmoid colon have a normal configuration. Abdominal Wall: Intact. Retroperitoneum: No evidence of adenopathy in the retrocrural, para-aortic, or deep pelvic regions. Bladder: Contours are smooth. Reproductive Organs: The uterus is mildly enlarged and retroverted in position. There is poor zonal delineation. Prominent vascular structures are identified in the parametrial soft tissues. Ovaries ar e unremarkable. Minimal fluid is identified in the cul-de-sac. Inguinal: The inguinal region is unremarkable without evidence of adenopathy. Bony Structures: Unremarkable. CONCLUSION: 1. Retroverted mildly enlarged uterus with prominent parametrial vessels. 2. Minimal fluid in the cul-de-sac. 3. No other significant abnormality. Electronically signed by: Huber Schmitt MD 04/01/2018 3:39 PM EDT
[2018-04-01] MEDS ORDERED: ZOFR4TAB PO (15:43)
[2018-04-01 16:16] VITALS: BP 120/85; PULSE 60; RESP 16; O2SAT 98
== END 2018-04-01 16:17 | disposition home or self-care (01) ==
LOC: NEPC 10:49
DX: R10.9 Unspecified abdominal pain (principal); R11.2 Nausea with vomiting, unspecified
CPT/HCPCS: 74177; 80053; 81001; 83690; 84703; 85025; 96361; 96374; 96375; 99284; J2270; J2765; J7030; Q9963; Q9967